=== PATIENT | male | born 1985 | race Hispanic/Latino ===

== ENCOUNTER 2023-05-07 19:06 | Emergency (ER) | payer SELFPAY ==
[2023-05-07 20:37] LABS: SARS-CoV-2 NAA Rapid Test DETECTED (NotDetected)
[2023-05-07] MEDS ORDERED: Ibuprofen 800 MG TAB ONE (20:53)
== END 2023-05-07 21:19 | disposition home or self-care (01) ==
LOC: CSHERS 19:06
DX: U07.1 COVID-19 (principal); I10 Essential (primary) hypertension; E11.9 Type 2 diabetes mellitus without complications; F14.90 Cocaine use, unspecified, uncomplicated; Z55.0 Illiteracy and low-level literacy; Z79.84 Long term (current) use of oral hypoglycemic drugs
CPT/HCPCS: 87081; 87430; 99283

== ENCOUNTER 2023-08-08 18:56 | Emergency (ER) | payer SELFPAY | END 2023-08-08 20:07 | disposition home or self-care (01) | LOC: CSHERS 18:56 | DX: H00.014 Hordeolum externum left upper eyelid (principal); E11.9 Type 2 diabetes mellitus without complications; I10 Essential (primary) hypertension | CPT/HCPCS: 99283 ==